=== PATIENT | female | born 1980 | race Caucasian/White ===

== ENCOUNTER 2019-12-22 05:38 | Day surgery (SDC) | payer OTHER ==
[~2019-12-22] VITALS: Ht 177.8 cm; Wt 91.2 kg
[~2019-12-22 05:38] MED LIST: PREN-59 PO
[2019-12-22] MEDS ORDERED: MIDAZOLAM 1 MG/ML, 2ML ONE (06:37)
[2019-12-22] MEDS ORDERED: FENTANYL PF 250 MCG/5ML ONE (06:37)
[2019-12-22] MEDS ORDERED: LACTATED RINGERS 1,000 ML IV SCH (06:42)
[2019-12-22 06:44] LABS: BASOPHILS # (AUTO) 0.02 x10^3/uL (0-0.1); BASOPHILS % (AUTO) 0 % (0-1); EOSINOPHILS # (AUTO) 0.12 x10^3/uL (0-0.4); EOSINOPHILS % (AUTO) 2 % (1-7); LYMPHOCYTES # (AUTO) 1.23 x10^3/uL (1-3.4); LYMPHOCYTES % (AUTO) 18 % (22-44); MD NO; MEAN CORPUSCULAR HEMOGLOBIN 30.9 pg (27.0-34.8); MEAN CORPUSCULAR HGB CONC 33.2 g/dL (32.4-35.8); MEAN PLATELET VOLUME 8.7 fL (7.4-10.4); MONOCYTES # (AUTO) 0.39 x10^3/uL (0.2-0.8); MONOCYTES % (AUTO) 6 % (2-9); NEUTROPHILS # (AUTO) 5.04 x10^3/uL (1.8-6.8); NEUTROPHILS % (AUTO) 74 % (42-75); PLATELET COUNT 178 x10^3/uL (130-400); RED BLOOD COUNT 4.38 x10^6/uL (3.82-5.3); RED CELL DISTRIBUTION WIDTH 12.8 % (9.6-15.2)
[2019-12-22] MEDS ORDERED: LIDOCAINE-MPF 1%, 2ML ONE (06:45)
[2019-12-22] MEDS ORDERED: CHLORHEXIDINE 15 ML UDC ONE (06:45)
[2019-12-22 06:58] VITALS: BP 126/86
[2019-12-22] MEDS ORDERED: LIDOCAINE-MPF 1%, 2ML INFIL ONE (07:00)
[2019-12-22] MEDS ORDERED: CHLORHEXIDINE 15 ML UDC MM ONE (07:00)
[2019-12-22] MEDS ORDERED: SILVER NITRATE STICK TP ONE (07:15)
[2019-12-22] MEDS ORDERED: OXYTOCIN 10 UNITS/ML, 1ML ONE (07:15)
[2019-12-22] MEDS ORDERED: MISOPROSTOL 200 MCG TABLET ONE (07:15)
[2019-12-22] MEDS ORDERED: METHYLERGONOVINE 0.2 MG/ML IM ONE (07:16)
[2019-12-22] MEDS ORDERED: EPHEDRINE 50 MG/ML, 1ML IVPush PRN (07:30)
[2019-12-22] MEDS ORDERED: OXYcodone 5 MG/5 ML ORAL.SOL UDC PO PRN (07:30)
[2019-12-22] MEDS ORDERED: ACETAMINOPHEN 325 MG TABLET PO PRN (07:30)
[2019-12-22] MEDS ORDERED: LABETALOL 5MG/ML, 20ML IV PRN (07:30)
[2019-12-22] MEDS ORDERED: PROMETHAZINE 12.5 MG SUPP PR PRN (07:30)
[2019-12-22] MEDS ORDERED: HYDROmorphone 1 MG/ML, 1ML INJ IVPush PRN (07:30)
[2019-12-22] MEDS ORDERED: LORazepam 2 MG/ML, 1ML IVPush PRN (07:30)
[2019-12-22] MEDS ORDERED: PROPOFOL 50 ML ONE (07:30)
[2019-12-22] MEDS ORDERED: DOXYCYCLINE 100 MG VIAL ONE (08:02)
[2019-12-22] MEDS ORDERED: PROPOFOL 10 MG/ML, 20ML ONE (09:07)
[2019-12-22] MEDS ORDERED: GLYCOPYRROLATE 0.2MG/1ML, 5ML ONE (09:07)
[2019-12-22] MEDS ORDERED: DEXAMETHASONE 4 MG/ML, 1ML ONE (09:07)
[2019-12-22] MEDS ORDERED: SUCCINYLCHOLINE 20 MG/ML, 10ML ONE (09:07)
[2019-12-22] MEDS ORDERED: ONDANSETRON 2MG/ML, 2ML ONE (09:07)
[2019-12-22] MEDS ORDERED: NEOSTIGMINE 1 MG/ML, 10ML ONE (09:07)
[2019-12-22] MEDS ORDERED: CEFAZOLIN 1,000 MG ONE (09:07)
[2019-12-22] MEDS ORDERED: ACETAMINOPHEN 650 MG/20.3 ML UDC ONE (09:12)
[2019-12-22] MEDS ORDERED: KETOROLAC 30 MG/1 ML ONE (09:12)
[2019-12-22] MEDS ORDERED: FENTANYL PF 100 MCG/2ML ONE (09:13)
[2019-12-22] MEDS: FENTANYL PF 100 MCG/2ML IV PRN ×4 (09:16→09:41)
[2019-12-22] MEDS ORDERED: KETOROLAC 30 MG/1 ML IVPush ONE (09:30)
[2019-12-22] MEDS ORDERED: OXYcodone 5 MG/5 ML ORAL.SOL UDC ONE (09:35)
[2019-12-22] MEDS ORDERED: HYDROmorphone 1 MG/ML, 1ML INJ ONE (09:56)
== END 2019-12-22 11:00 | disposition home or self-care (01) ==
LOC: OUT 05:38
PROVIDERS: ATTEND Obstetrics & Gynecology
DX: O02.1 Missed abortion (principal); Z20.828 Contact with and (suspected) exposure to other viral communicable diseases; Z79.899 Other long term (current) drug therapy; Z90.49 Acquired absence of other specified parts of digestive tract; Z90.721 Acquired absence of ovaries, unilateral; Z98.890 Other specified postprocedural states
CPT/HCPCS: 36415; 59820; 85025; 86850; 86900; 87635; 88305; J0330; J1100; J1170; J1885; J2210; J2250; J2405; J2704; J2710; J3010; J7120; 86923; J0690; J2590